=== PATIENT | male | born 1970 | race Caucasian/White ===

== ENCOUNTER 2018-09-24 08:46 | Emergency (ER) | payer OTHER ==
[2018-09-24 08:52] VITALS: Ht 167.6 cm
[2018-09-24 09:29] LABS: BASOPHIL % 0.3 % (0-2); PLATELET COUNT 225 x10^3mcL (130-400); RED CELL DISTRIBUTION WIDTH 13.5 % (11.5-14.5)
[2018-09-24 09:43] LABS: CALCIUM 8.7 mg/dL (8.5-10.1); CHLORIDE SERUM 105 mmol/L (98-107); GFR1 > 60 mL/min; GLUCOSE SERUM 102 mg/dL (74-106); POTASSIUM SERUM 4.9 mmol/L (3.5-5.1); SODIUM SERUM 142 mmol/L (136-145)
[2018-09-24 09:47] LABS: ALBUMIN 3.7 g/dL (3.4-5.0); ALKALINE PHOSPHATASE 47 U/L (46-116); ALT/SGPT 32 U/L (16-63); AST/SGOT 27 U/L (15-37); CHOLESTEROL 194 mg/dL (<200); HDL CHOLESTEROL 39 mg/dL (40-60); MAGNESIUM 2.2 mg/dL (1.8-2.4); TOTAL PROTEIN, SERUM 7.6 g/dL (6.4-8.2)
[2018-09-24 11:21] VITALS: BP 113/67
== END 2018-09-24 11:21 | disposition home or self-care (01) ==
LOC: ED 08:46
PROVIDERS: Emergency Medicine
DX: E86.0 Dehydration (principal); T45.515A Adverse effect of anticoagulants, initial encounter; K91.841 Postprocedural hemorrhage of a digestive system organ or structure following other procedure; Z90.89 Acquired absence of other organs; Z85.850 Personal history of malignant neoplasm of thyroid; Y92.89 Other specified places as the place of occurrence of the external cause
CPT/HCPCS: J7030; Q0092